=== PATIENT | male | born 1990 | race African-American/Black ===

== ENCOUNTER 2016-05-14 18:23 | Emergency (ER) ==
[2016-05-14] MEDS ORDERED: MOTRIN PO ONE (20:35)
[2016-05-14] MEDS ORDERED: FLEXERIL PO ONE (20:35)
--- NOTE | 2016-05-14 20:35 | PROVIDER DOCUMENTATION ---
HPI-General Adult - General Chief Complaint: Male Stated Complaint: LOWER BACK PAIN, BURNING Time Seen by Provider: 05/14/16 20:14 Source: patient, family Allergies/Adverse Reactions: Patient Allergies Allergy/AdvReac Type Severity Reaction Status Date / Time No Known Allergies Allergy Verified 05/14/16 20:35 Home Medications: Home Medication List Medication Instructions Recorded Confirmed Last Taken Type Insulin Glargine [Lantus] 40 unit SUBQ QHS #5 insuln.pen 08/26/15 05/14/1605/13 20:00 Rx Insulin Lispro [Humalog Kwikpen] 10 unit SQ TID #5 insuln.pen 08/26/15 05/14/16 05/14/16 12:00 Rx Cyclobenzaprine [Flexeril] 10 mg PO TID #10 tablet 05/14/16 Unknown Rx Ibuprofen [Motrin] 800 mg PO Q8H PRN PRN #10 tablet 05/14/16 Unknown Rx - History of Present Illness -Gen Adult Nature of Presenting Problems: 26 year old KRYSTIN presents with c/o low back pain, onset at 1430 today. pt reports he was at work, not overexerting himself when the pain developed. pt reports the pain is sharp, constant, exacerbated by movement, flexion/ extention. denies loss of bowel or bladder. Additionally, pt reports he received a call from a former girlfriend who reported she hade exposed him to gonorrhea and he would like to be tested. pt denies penile discharge, dysuria. Location of Pain/Injury: reports: back Pain Radiation: reports: no radiation Quality of Pain: reports: aching, dull Severity: reports: mild Onset/Duration: reports: 4-6 hours ago Timing: reports: still present, constant, getting worse Context/Activities at Onset: reports: none. denies: light activity, moderate activity, vigorous activity, recent physical stress, recent trauma history Modifying Factors: improves with: movement Associated Symptoms: reports: back/neck pain. denies: genitourinary problems, muscle aches, sensory/motor loss, syncope, weakness, trouble walking Similar Symptoms Previously?: No Recently seen or treated by another doctor?: No Review of Systems - Adult - REVIEW OF SYSTEMS - ADULT Constitutional: reports: no symptoms reported. denies: chills, fever, fatique Eyes: reports: no symptoms reported. denies: discharge, blurred vision, double vision, redness Ears, Nose, Mouth & Throat: reports: no symptoms reported. denies: ear discharge, ear pain, nose pain, loose teeth, throat pain, throat swelling Cardiovascular: reports: no symptoms reported. denies: chest pain, palpitations , syncope Respiratory: reports: no symptoms reported. denies: chronic cough, cough, shortness of breath, wheezing Gastrointestinal: reports: no symptoms reported. denies: abdominal pain, diarrhea, nausea, vomiting Genitourinary: reports: no symptoms reported. denies: dysuria, discharge, hematuria, urgency Musculoskeletal: reports: see HPI, back pain. denies: bone pain, frequent leg cramps, joint pain, joint swelling, muscle aches, muscle weakness, neck pain Integumentary: reports: no symptoms reported. denies: hives, rash, skin sores/ ulcer Neurological: reports: no symptoms reported. denies: dizziness/vertigo, seizure , tremors Psychiatric: reports: no symptoms reported. denies: anxiety, anti-depressant use Endocrine: reports: no symptoms reported Hematologic/Lymphatic: reports: no symptoms reported Allergic/Immunologic: reports: no symptoms reported All Other Systems: Reviewed and Negative Past History - Adult - PAST MEDICAL HISTORY-ADULT Review of Records: reports: Old Records Reviewed, Nursing Assessment Review, Medications Reviewed, Social history reviewed & non-contributory. Major Childhood Illnesses: reports: denies history Cardiovascular: reports: murmur Respiratory: reports: denies history Gastrointestinal: reports: denies history Obstetrical/Gynecological: reports: denies history Genitourinary: reports: denies history Musculoskeletal: reports: denies history Neurological: reports: denies history Endocrine/Immune: reports: Diabetes Other Conditions: reports: denies history Additional History: DKA - PRIOR SURGERIES/PROCEDURES Surgical/Procedure History: reports: none - PRIOR HOSPITALIZATIONS Prior Hospitalizations: reports: for other non-related - IMMUNIZATION STATUS Childhood Immunizations: See Nurse Assessment Flu Vaccine: See Nurse Assessment - FAMILY HISTORY Family History: diabetes - SOCIAL HISTORY Smoking: denies, non-smoker Substance Use: none/never Alcohol Use Frequency: never Physical Exam-General - PHYSICAL EXAM-ADULT Initial Vital Signs Reviewed: Yes - CONSTITUTIONAL General Appearance: appears well, alert, no apparent distress. negative: mild distress, moderate distress, severe distress - EYES Eyes: pink conjunctivae. negative: conjuctival exudate, pale conjunctivae, sclera injected, scleral icterus, subconjunctival hemorrhage - HEAD, EARS, NOSE, MOUTH & THROAT HENMT: normocephalic/atraumatic, moist mucous membranes, normal ENT inspection - NECK Neck: non-tender, full range of motion, supple, normal inspection. negative: C- spine tenderness, limited range of motion, tender lateral, tender midline - RESPIRATORY Respiratory: chest non-tender, lungs clear, normal breath sounds, no pleuratic chest pain, no respiratory distress, no accessory muscle use. negative: respiratory distress, decreased breath sounds, accessory muscle use, crackles, rales, rhonchi, stridor, wheezing - CARDIOVASCULAR Cardiovascular: normal peripheral pulses, regular rate, rhythm - GASTROINTESTINAL (ABDOMEN) Abdominal Exam: normal bowel sounds, non tender, soft - GENITOURINARY Male Genitalia: deferred Rectal Exam: deferred Hemoccult Exam: deferred - LYMPHATIC Lymphatic: no adenopathy - MUSCULOSKELETAL Back Exam: normal inspection, no CVA tenderness, vertebral tenderness (lumbar). negative: no vertebral tenderness, CVA tenderness, decreased range of motion, ecchymosis, kyphosis, lordosis, muscle spasm, scoliosis, swelling Extremity: normal range of motion, non-tender, normal gait, normal inspection, no pedal edema, no calf tenderness, normal capillary refill Peripheral Pulses: radial (R): 3+, radial (L): 3+, dorsalis-pedis (R): 3+, dorsalis-pedis (L): 3+ - SKIN Integumentary: normal color, normal turgor, warm/dry - NEUROLOGIC Neurologic: grossly normal, no motor/sensory deficits. negative: focal weakness , motor weakness - PSYCHIATRIC Psych/Mental Status: normal mood/affect, normal thought content, normal thought process, oriented x 3 Progress - PLAN OF CARE/RESULTS Progress/Plan/Lab Results: Orders Category Date Time Status CHLAMYDIA AND GC BY PCR URINE [[facility]] Stat Lab 05/14/16 18:37 Received Cyclobenzaprine [Flexeril] Med 05/14/16 20:35 Discontinued 10 mg PO NOW ONE Ibuprofen [Motrin] Med 05/14/16 20:35 Discontinued 800 mg PO NOW ONE Vital Signs - 24 hr 05/14/16 05/14/16 18:30 21:12 Temperature 98.3 F Pulse Rate 82 74 Respiratory 20 16 Rate Blood Pressure 150/82 113/77 O2 Sat by Pulse 96 100 Oximetry I discussed with patient the option receive treatment for his exposure now or wait for results. Pt reports he would like to wait for results. Departure - Departure Time of Disposition Order: 20:31 DIAGNOSIS: Sexually transmitted disease exposure Strain of thoracic spine Qualifiers: Encounter type: initial encounter Qualified Code(s): S29.019A - Strain of muscle and tendon of unspecified wall of thorax, initial encounter Disposition: HOME 01 Certified Medical Emergency: Emergent Condition: Stable Additional Instructions: Follow up with your primary care doctor as needed for your back sprain. Call the ED on Friday to find out the results of your tests. ED Follow Up Instructions: You have been treated by a care provider in the Emergency Department. These instructions are being provided to you so you can have an understanding of how to care for yourself upon discharge. Upon discharge from the Emergency Department, you are responsible for making arrangements for follow-up care by a physician of your choice. Take all prescribed medications as directed. Return to the Emergency Department immediately for any new or worsening symptoms. You may call the Physician Referral phone number at [phone] to obtain a list of Physicians who are taking new patients. Prescriptions: Cyclobenzaprine [Flexeril] 10 mg PO TID #10 tablet Ibuprofen [Motrin] 800 mg PO Q8H PRN PRN #10 tablet PRN Reason: inflammation Referrals: None,PCP [Primary Care Provider] - [facility] [NON-STAFF] - Forms: Return to School/Parent Work Instructions: Sexually Transmitted Disease, [id number], Thoracic Strain, Easy -to-Read Attestation - Physician/ JOHNNIE Attestation Patient care was provided by Advanced Practice Provider:: Yes Advanced Practice Provider:: Xochitl Orr Advanced Practice Provider documentation review:: The Mid-level provider documentation, treatment plan and medical decision making was reviewed by the physician who agrees with all treatment and medical decision making by the MLP.
[2016-05-14 21:12] VITALS: BP 113/77
== END 2016-05-14 21:12 | disposition home or self-care (01) ==
LOC: ED 18:23
DX: S29.019A Strain of muscle and tendon of unspecified wall of thorax, initial encounter (principal); M54.5 Low back pain; E11.9 Type 2 diabetes mellitus without complications; Z79.4 Long term (current) use of insulin; Z20.2 Contact with and (suspected) exposure to infections with a predominantly sexual mode of transmission; Z83.3 Family history of diabetes mellitus
CPT/HCPCS: 87491; 87591; 99283